=== PATIENT | male | born 1950 | race Caucasian/White ===

== ENCOUNTER 2021-05-25 09:39 | Inpatient (IN) ==
[2021-05-25] MEDS ORDERED: Isovue-370 500 ML BOTTLE IVP ONE (10:01)
[2021-05-25] MEDS ORDERED: *HR* OxyCODONE/APAP 5/325 TABLET PO ONE (10:02)
[2021-05-25 10:30] LABS: Bacteria,Urine Few per hpf (None-Few); Bilirubin,Urine Negative (Negative); Blood,Urine Large (Negative); Clarity,Urine Ex.Turbid (Clear); Color,Urine Yellow (Yellow); Glucose,Urine (UA) Normal (Normal); Ketones,Urine Negative (Negative); Leukocyte Esterase,Urine Large (Negative); Mucus,Urine Few per lpf (None-Few); Nitrite,Urine Negative (Negative); Protein,Urine 70 mg/dL (Neg-Trace); RBC,Urine 30-50 per hpf (0-3); Specific Gravity,Urine 1.018 (1.010-1.025); Transitional Epi Cells,Urine Few per hpf (None-Few); Urobilinogen,Urine Normal (Normal); WBC,Urine TNTC per hpf (0-3)
[2021-05-25 10:33] LABS: Basophils % 0.2 %; Eosinophils % 0.1 %; Hematocrit 41.2 % (37.5-50.1); Hemoglobin 13.7 g/dL (12.9-16.9); Immature Granulocytes % 1.2 % (0-4); Lymphocytes # 0.8 K/mcL (0.6-4.6); Lymphocytes % 4.2 %; Mean Corpuscular HGB Conc 33.3 g/dL (31.6-35.5); Mean Corpuscular Hemoglobin 31.5 pg (28.0-33.3); Mean Corpuscular Volume 94.7 fL (83.0-100.0); Mean Platelet Volume 9.9 fL (9.4-12.4); Monocytes # 1.4 K/mcL (0.0-1.3); Monocytes % 7.4 %; Neutrophils # 16.5 K/mcL (1.6-8.9); Platelet Count 225 K/mcL (140-400); Red Blood Count 4.35 M/mcL (4.19-5.50); Red Cell Distribution Width 13.6 % (11.5-14.5); Segmented Neutrophils % 86.9 %
[2021-05-25 10:52] LABS: Calcium 9.2 mg/dL (8.6-10.3)
[2021-05-25] MEDS ORDERED: Ampicillin/Sulbactam 3,000 MG in 0.9 % Sodium Chloride Mini Bag 100 ML IVPB ONE (12:39)
[2021-05-25] MEDS ORDERED: 0.9 % Sodium Chloride 1,000 ML IVC ONE (12:39)
[2021-05-25] MEDS ORDERED: Acetaminophen 325 MG TABLET PO PRN (13:39)
[2021-05-25] MEDS ORDERED: Ondansetron 4 MG/2 ML VIAL IVP PRN (13:39)
[2021-05-25] MEDS ORDERED: Naloxone 0.4 MG/ML INJ IVP PRN (13:39)
[2021-05-25] MEDS: Nicotine 21 MG PATCH.TD24 TD SCH (15:40)
[2021-05-25] MEDS: *HR* OxyCODONE Immed Rel 5 MG TABLET PO PRN (15:41)
[2021-05-25] MEDS: 0.9 % Sodium Chloride 1,000 ML IVC SCH (15:41)
[2021-05-26] MEDS: 0.9 % Sodium Chloride 1,000 ML IVC SCH ×2 (01:44→15:27)
[2021-05-26 05:42] LABS: Hematocrit 35.9 % (37.5-50.1); Mean Corpuscular Volume 96.8 fL (83.0-100.0); Mean Platelet Volume 10.3 fL (9.4-12.4); Platelet Count 183 K/mcL (140-400); Red Blood Count 3.71 M/mcL (4.19-5.50); Red Cell Distribution Width 13.8 % (11.5-14.5); White Blood Count 21.8 K/mcL (4.3-11.1)
[2021-05-26 05:48] LABS: Hemoglobin 11.5 g/dL (12.9-16.9)
[2021-05-26 06:06] LABS: Calcium 7.9 mg/dL (8.6-10.3); Potassium 3.6 mEq/L (3.5-5.1)
[2021-05-26 06:45] LABS: Lymphocytes # 1.7 K/mcL (0.6-4.6); Monocytes # 0.4 K/mcL (0.0-1.3); Neutrophils # 19.6 K/mcL (1.6-8.9); Platelet Estimate Normal (Normal)
[2021-05-26] MEDS: Nicotine 21 MG PATCH.TD24 TD SCH (08:30)
[2021-05-26] MEDS: Ertapenem 1,000 MG in 0.9 % Sodium Chloride Mini Bag 100 ML IVPB SCH (08:31)
[2021-05-26] MEDS ORDERED: Ertapenem 1,000 MG in 0.9 % Sodium Chloride Mini Bag 100 ML IVPB ONE (12:49)
[2021-05-26] MEDS: *HR* OxyCODONE Immed Rel 5 MG TABLET PO PRN (19:17)
[2021-05-27] MEDS: *HR* OxyCODONE Immed Rel 5 MG TABLET PO PRN ×3 (01:28→21:03)
[2021-05-27 04:51] LABS: Basophils % 0.1 %; Eosinophils % 0.2 %; Hematocrit 34.1 % (37.5-50.1); Hemoglobin 10.9 g/dL (12.9-16.9); Immature Granulocytes % 0.9 % (0-4); Lymphocytes # 0.8 K/mcL (0.6-4.6); Lymphocytes % 4.2 %; Mean Corpuscular Hemoglobin 30.8 pg (28.0-33.3); Mean Corpuscular Volume 96.3 fL (83.0-100.0); Mean Platelet Volume 10.1 fL (9.4-12.4); Monocytes # 0.9 K/mcL (0.0-1.3); Neutrophils # 16.6 K/mcL (1.6-8.9); Platelet Count 182 K/mcL (140-400); Red Blood Count 3.54 M/mcL (4.19-5.50); Red Cell Distribution Width 13.7 % (11.5-14.5); Segmented Neutrophils % 89.6 %; White Blood Count 18.5 K/mcL (4.3-11.1)
[2021-05-27 05:08] LABS: BUN/Creatinine Ratio 21 (6-26); Blood Urea Nitrogen 26 mg/dL (8-23); Calcium 7.8 mg/dL (8.6-10.3); Carbon Dioxide 22 mEq/L (23-29); Chloride 102 mEq/L (98-107); Glucose 104 mg/dL (70-105); Magnesium 1.8 mg/dL (1.6-2.6); Osmolality,Calculated 283 (280-300); Potassium 3.3 mEq/L (3.5-5.1); Sodium 134 mEq/L (136-145); eGFR For African Americans > 60 (> 60); eGFR For Non-African Americans 57 (> 60)
[2021-05-27] MEDS: Ertapenem 1,000 MG in 0.9 % Sodium Chloride Mini Bag 100 ML IVPB SCH (08:07)
[2021-05-27] MEDS: Nicotine 21 MG PATCH.TD24 TD SCH (08:07)
[2021-05-27] MEDS: 0.9 % Sodium Chloride 1,000 ML IVC SCH (09:49)
[2021-05-28] MEDS: 0.9 % Sodium Chloride 1,000 ML IVC SCH (05:18)
[2021-05-28] MEDS: *HR* OxyCODONE Immed Rel 5 MG TABLET PO PRN (05:19)
[2021-05-28 07:44] LABS: Basophils % 0.3 %; Eosinophils # 0.1 K/mcL (0.0-0.6); Eosinophils % 1.4 %; Hematocrit 34.6 % (37.5-50.1); Hemoglobin 11.1 g/dL (12.9-16.9); Immature Granulocytes % 1.2 % (0-4); Lymphocytes % 9.3 %; Mean Corpuscular HGB Conc 32.1 g/dL (31.6-35.5); Mean Corpuscular Hemoglobin 30.3 pg (28.0-33.3); Mean Corpuscular Volume 94.5 fL (83.0-100.0); Mean Platelet Volume 10.3 fL (9.4-12.4); Monocytes # 0.7 K/mcL (0.0-1.3); Monocytes % 8.1 %; Platelet Count 188 K/mcL (140-400); Red Blood Count 3.66 M/mcL (4.19-5.50); Red Cell Distribution Width 13.6 % (11.5-14.5); Segmented Neutrophils % 79.7 %
[2021-05-28 07:59] LABS: Lymphocytes # 0.9 K/mcL (0.6-4.6); Neutrophils # 7.3 K/mcL (1.6-8.9); White Blood Count 9.1 K/mcL (4.3-11.1)
[2021-05-28 08:11] LABS: BUN/Creatinine Ratio 19 (6-26); Blood Urea Nitrogen 23 mg/dL (8-23); Carbon Dioxide 22 mEq/L (23-29); Chloride 105 mEq/L (98-107); Glucose 121 mg/dL (70-105); Magnesium 1.8 mg/dL (1.6-2.6); Osmolality,Calculated 285 (280-300); Potassium 3.9 mEq/L (3.5-5.1); Sodium 135 mEq/L (136-145); eGFR For African Americans > 60 (> 60); eGFR For Non-African Americans > 60 (> 60)
[2021-05-28] MEDS: Nicotine 21 MG PATCH.TD24 TD SCH (08:23)
[2021-05-28] MEDS ORDERED: levoFLOXacin 750 MG/150 ML 750 MG/150 ML BAG IVPB SCH (09:00)
[2021-05-28 11:13] VITALS: BP 108/72; PULSE 88; TEMP 98; O2SAT 98
== END 2021-05-28 12:00 | disposition home or self-care (01) | DRG 862 ==
LOC: EMEROOARM 09:39 → 3ANU 09:39 → SUATTDRO 13:09 → 3ANU 14:33 → SUATTDRO 05-26 18:54
PROVIDERS: ADMIT Internal Medicine; ATTEND Hospitalist

== ENCOUNTER 2021-06-17 15:36 | Inpatient (IN) ==
[2021-06-17] MEDS ORDERED: 0.9 % Sodium Chloride 1,000 ML ONE (16:23)
[2021-06-17] MEDS ORDERED: *HR* Heparin 5,000 UNIT/ML VIAL IVP PRN ×4 (16:34→21:38)
[2021-06-17] MEDS ORDERED: *HR* Heparin 5,000 UNIT/ML VIAL IVP ONE ×2 (16:34→21:38)
[2021-06-17] MEDS ORDERED: Heparin 25,000UNIT/250ML 1/2NS 25,000 UNIT/250 ML IV.SOLN IVC SCH ×2 (16:45→21:45)
[2021-06-17 16:56] LABS: Basophils % 0.3 %; Eosinophils # 0.2 K/mcL (0.0-0.6); Eosinophils % 1.6 %; Hematocrit 41.4 % (37.5-50.1); Hemoglobin 13.3 g/dL (12.9-16.9); Immature Granulocytes % 0.4 % (0-4); Lymphocytes % 8.8 %; Mean Corpuscular HGB Conc 32.1 g/dL (31.6-35.5); Mean Corpuscular Hemoglobin 30.5 pg (28.0-33.3); Mean Platelet Volume 10.4 fL (9.4-12.4); Monocytes # 0.9 K/mcL (0.0-1.3); Monocytes % 7.9 %; Neutrophils # 9.4 K/mcL (1.6-8.9); Platelet Count 150 K/mcL (140-400); Red Blood Count 4.36 M/mcL (4.19-5.50); Red Cell Distribution Width 14.4 % (11.5-14.5); White Blood Count 11.6 K/mcL (4.3-11.1)
[2021-06-17 17:00] LABS: INR 1.1; Prothrombin Time 12.4 Seconds (9.4-12.1)
[2021-06-17] MEDS ORDERED: Aspirin 81 MG TAB.CHEW PO ONE (17:02)
[2021-06-17 17:03] LABS: Activated Partial Thrombo Time 30.5 Seconds (26.0-36.0); Heparin anti-factor XA UFH < 0.04 IU/mL (0.30-0.70)
[2021-06-17] MEDS ORDERED: 0.9 % Sodium Chloride 1,000 ML IVC ONE (17:16)
[2021-06-17 17:26] LABS: Alanine Aminotransferase 15 Units/L (7-52); Albumin 3.9 g/dL (3.5-5.7); Albumin/Globulin Ratio 1.3 (1.1-2.2); Alkaline Phosphatase 41 Units/L (34-104); Aspartate Amino Transferase 31 Units/L (13-39); BUN/Creatinine Ratio 17 (6-26); Bilirubin,Direct 0.1 mg/dL (0.0-0.2); Bilirubin,Indirect 0.6 mg/dL (0.0-1.0); Bilirubin,Total 0.7 mg/dL (0.3-1.0); Blood Urea Nitrogen 22 mg/dL (8-23); Calcium 9.2 mg/dL (8.6-10.3); Carbon Dioxide 27 mEq/L (23-29); Chloride 102 mEq/L (98-107); Globulin 3.1 g/dL (2.4-3.5); Glucose 121 mg/dL (70-105); Osmolality,Calculated 287 (280-300); Potassium 3.9 mEq/L (3.5-5.1); Sodium 136 mEq/L (136-145); Troponin I 1.72 ng/mL (< 0.04); eGFR For African Americans > 60 (> 60); eGFR For Non-African Americans 55 (> 60)
[2021-06-17] MEDS ORDERED: Naloxone 0.4 MG/ML INJ IVP PRN (18:14)
[2021-06-17] MEDS ORDERED: Ondansetron 4 MG/2 ML VIAL IVP PRN (18:14)
[2021-06-17 18:51] LABS: D-Dimer 3949 ng/mLFEU (0-500)
[2021-06-17] MEDS ORDERED: Isovue-370 500 ML BOTTLE IVP ONE (19:52)
[2021-06-17] MEDS ORDERED: Perflutren Lipid Microsphere 1.3 ML in 0.9 % Sodium Chloride 8.7 ML IVP PRN (21:42)
[2021-06-18] MEDS ORDERED: *HR* Heparin 5,000 UNIT/ML VIAL IVP PRN ×2 (01:10)
[2021-06-18] MEDS ORDERED: Heparin 25,000UNIT/250ML 1/2NS 25,000 UNIT/250 ML IV.SOLN IVC SCH (01:15)
[2021-06-18 02:10] LABS: Chol/HDL Ratio 3.9 (0-4.9); Uric Acid 5.1 mg/dL (2.3-7.6)
[2021-06-18 02:11] LABS: BUN/Creatinine Ratio 15 (6-26); Blood Urea Nitrogen 19 mg/dL (8-23); Calcium 8.5 mg/dL (8.6-10.3); Carbon Dioxide 26 mEq/L (23-29); Chloride 105 mEq/L (98-107); Glucose 133 mg/dL (70-105); Magnesium 1.9 mg/dL (1.6-2.6); Osmolality,Calculated 288 (280-300); Phosphorous 2.4 mg/dL (2.7-4.5); Potassium 3.8 mEq/L (3.5-5.1); Sodium 137 mEq/L (136-145); eGFR For African Americans > 60 (> 60); eGFR For Non-African Americans 58 (> 60)
[2021-06-18 02:14] LABS: Hemoglobin 12.1 g/dL (12.9-16.9); Immature Granulocytes % 0.3 % (0-4); Mean Platelet Volume 10.8 fL (9.4-12.4); Red Cell Distribution Width 14.6 % (11.5-14.5)
[2021-06-18 02:16] LABS: Basophils % 0.3 %; Eosinophils # 0.6 K/mcL (0.0-0.6); Eosinophils % 6.7 %; Hematocrit 36.7 % (37.5-50.1); Immature Platelets 2.6 % (1.1-6.1); Lymphocytes # 1.2 K/mcL (0.6-4.6); Lymphocytes % 12.7 %; Mean Corpuscular Hemoglobin 31.3 pg (28.0-33.3); Mean Corpuscular Volume 94.8 fL (83.0-100.0); Monocytes # 0.7 K/mcL (0.0-1.3); Monocytes % 7.9 %; Neutrophils # 6.6 K/mcL (1.6-8.9); Platelet Count 139 K/mcL (140-400); Red Blood Count 3.87 M/mcL (4.19-5.50); Segmented Neutrophils % 72.1 %; White Blood Count 9.2 K/mcL (4.3-11.1)
[2021-06-18 02:19] LABS: Troponin I 1.58 ng/mL (< 0.04)
[2021-06-18 02:24] LABS: Thyroid Stimulating Hormone 0.761 mcIU/mL (0.340-5.600)
[2021-06-18] MEDS: Nitroglycerin 0.4 MG TAB.SUBL SL PRN ×2 (02:49→08:26)
[2021-06-18] MEDS ORDERED: Aspirin Enteric Coated 81 MG Tablet PO SCH (09:00)
[2021-06-18] MEDS ORDERED: *HR* Heparin 10,000 UNIT/10 ML VIAL ONE (10:49)
[2021-06-18] MEDS ORDERED: Nitroglycerin 1,000 MCG/5 ML VIAL IV ONE (10:49)
[2021-06-18] MEDS ORDERED: 0.9 % Sodium Chloride 1,000 ML ONE ×2 (10:49→10:58)
[2021-06-18] MEDS ORDERED: Heparin 1,000 UNITS/500 mL 500 ML ONE (10:49)
[2021-06-18] MEDS ORDERED: ISOVUE-370 200 ML INFUS..BTL ONE ×2 (10:49→11:55)
[2021-06-18] MEDS ORDERED: *HR* FentaNYL (PF) 100 MCG/2 ML VIAL ONE (11:19)
[2021-06-18] MEDS ORDERED: *HR* Midazolam HCl 2 MG/2 ML VIAL ONE (11:19)
[2021-06-18] MEDS ORDERED: Tirofiban 12.5 MG/250ML 12.5 MG/250 ML BAG ONE (11:47)
[2021-06-18] MEDS ORDERED: *HR* Ticagrelor 90 MG TABLET ONE (12:04)
[2021-06-18] MEDS ORDERED: *HR* Atropine Sulfate 1 MG/10 ML SYRINGE ONE (12:14)
[2021-06-18] MEDS ORDERED: Tirofiban 12.5 MG/250ML 12.5 MG/250 ML BAG IVC SCH (12:45)
[2021-06-18] MEDS ORDERED: Isosorbide MONOnitrate (24 HR) 30 MG TAB.ER.24H PO SCH (13:00)
[2021-06-18] MEDS ORDERED: lisinopriL 5 MG TABLET PO SCH (15:30)
[2021-06-18] MEDS: *HR* Ticagrelor 90 MG TABLET PO SCH (20:00)
[2021-06-18] MEDS ORDERED: Melatonin 3 MG TABLET PO PRN (22:46)
[2021-06-19 02:58] LABS: BUN/Creatinine Ratio 15 (6-26); Blood Urea Nitrogen 18 mg/dL (8-23); Calcium 8.4 mg/dL (8.6-10.3); Carbon Dioxide 26 mEq/L (23-29); Chloride 106 mEq/L (98-107); Glucose 209 mg/dL (70-105); Osmolality,Calculated 292 (280-300); Phosphorous 2.1 mg/dL (2.7-4.5); Potassium 3.8 mEq/L (3.5-5.1); Sodium 137 mEq/L (136-145); eGFR For African Americans > 60 (> 60); eGFR For Non-African Americans 59 (> 60)
[2021-06-19 06:41] VITALS: BP 99/63; PULSE 86; TEMP 97.8; O2SAT 97
[2021-06-19] MEDS: *HR* Ticagrelor 90 MG TABLET PO SCH (08:23)
[2021-06-19] MEDS ORDERED: Aspirin 81 MG TAB.CHEW PO SCH (09:00)
== END 2021-06-19 10:48 | disposition home or self-care (01) | DRG 246 ==
LOC: 2ANU 15:36 → EMEROOARM 15:36 → SUATTDRO 20:07 → 2ANU 21:10
PROVIDERS: ADMIT Internal Medicine; ATTEND Internal Medicine

== ENCOUNTER 2021-09-11 09:51 | Observation (INO) ==
[2021-09-11 10:47] LABS: Basophils % 0.4 %
[2021-09-11 10:51] LABS: Eosinophils # 0.2 K/mcL (0.0-0.6); Eosinophils % 2.9 %; Hematocrit 45.8 % (37.5-50.1); Immature Granulocytes % 0.1 % (0-4); Immature Platelets 3.4 % (1.1-6.1); Lymphocytes # 1.3 K/mcL (0.6-4.6); Lymphocytes % 18.8 %; Mean Corpuscular HGB Conc 32.8 g/dL (31.6-35.5); Mean Corpuscular Hemoglobin 30.5 pg (28.0-33.3); Mean Corpuscular Volume 93.1 fL (83.0-100.0); Mean Platelet Volume 10.2 fL (9.4-12.4); Monocytes # 0.5 K/mcL (0.0-1.3); Monocytes % 7.3 %; Neutrophils # 4.9 K/mcL (1.6-8.9); Platelet Count 161 K/mcL (140-400); Red Blood Count 4.92 M/mcL (4.19-5.50); Red Cell Distribution Width 13.9 % (11.5-14.5); Segmented Neutrophils % 70.5 %
[2021-09-11 11:08] LABS: BUN/Creatinine Ratio 17 (6-26); Blood Urea Nitrogen 20 mg/dL (8-23); Calcium 9.3 mg/dL (8.6-10.3); Carbon Dioxide 29 mEq/L (23-29); Chloride 105 mEq/L (98-107); Glucose 115 mg/dL (70-105); Osmolality,Calculated 292 (280-300); Potassium 4.4 mEq/L (3.5-5.1); Sodium 139 mEq/L (136-145); Troponin I < 0.03 ng/mL (< 0.04); eGFR For African Americans > 60 (> 60); eGFR For Non-African Americans > 60 (> 60)
[2021-09-11 11:20] LABS: Platelet Estimate Normal (Normal)
[2021-09-11] MEDS ORDERED: Melatonin 3 MG TABLET PO PRN (14:22)
[2021-09-11] MEDS ORDERED: Ondansetron 4 MG/2 ML VIAL IVP PRN (14:22)
[2021-09-11] MEDS ORDERED: Acetaminophen 325 MG TABLET PO PRN (14:22)
[2021-09-11] MEDS ORDERED: Nicotine 2 MG GUM BC PRN (14:23)
[2021-09-11] MEDS ORDERED: Perflutren Lipid Microsphere 1.3 ML in 0.9 % Sodium Chloride 8.7 ML IVP PRN (14:28)
[2021-09-11] MEDS: traZODone 50 MG TABLET PO SCH (19:52)
[2021-09-12 03:42] LABS: BUN/Creatinine Ratio 20 (6-26); Blood Urea Nitrogen 22 mg/dL (8-23); Calcium 8.8 mg/dL (8.6-10.3); Carbon Dioxide 24 mEq/L (23-29); Chloride 106 mEq/L (98-107); Glucose 88 mg/dL (70-105); Magnesium 1.8 mg/dL (1.6-2.6); Osmolality,Calculated 291 (280-300); Phosphorous 2.9 mg/dL (2.7-4.5); Potassium 3.6 mEq/L (3.5-5.1); Sodium 139 mEq/L (136-145); Troponin I < 0.03 ng/mL (< 0.04); eGFR For African Americans > 60 (> 60); eGFR For Non-African Americans > 60 (> 60)
[2021-09-12] MEDS ORDERED: Regadenoson 0.4 MG/5 ML SYRINGE IVP ONE (06:33)
[2021-09-12] MEDS ORDERED: Perflutren Lipid Microsphere 1.3 ML in 0.9 % Sodium Chloride 8.7 ML IVP PRN (08:00)
[2021-09-12] MEDS: Aspirin 81 MG TAB.CHEW PO SCH (09:57)
[2021-09-12] MEDS: Metoprolol XL (24 HR) Succ 25 MG TAB.ER.24H PO SCH (09:58)
[2021-09-12] MEDS ORDERED: *HR* FentaNYL (PF) 100 MCG/2 ML VIAL ONE (11:34)
[2021-09-12] MEDS ORDERED: *HR* Midazolam HCl 2 MG/2 ML VIAL ONE ×2 (11:34→12:47)
[2021-09-12] MEDS ORDERED: *HR* Heparin 10,000 UNIT/10 ML VIAL ONE ×2 (11:35→12:07)
[2021-09-12] MEDS ORDERED: 0.9 % Sodium Chloride 1,000 ML ONE (11:35)
[2021-09-12] MEDS ORDERED: ISOVUE-370 200 ML INFUS..BTL ONE (11:35)
[2021-09-12] MEDS ORDERED: Nitroglycerin 1,000 MCG/5 ML VIAL IV ONE (11:35)
[2021-09-12] MEDS ORDERED: Heparin 1,000 UNITS/500 mL 500 ML ONE (11:35)
[2021-09-12] MEDS: traZODone 50 MG TABLET PO SCH (20:26)
[2021-09-13 07:17] VITALS: BP 133/70; PULSE 83; TEMP 97.5; O2SAT 94
[2021-09-13] MEDS: Aspirin 81 MG TAB.CHEW PO SCH (07:36)
[2021-09-13] MEDS: Metoprolol XL (24 HR) Succ 25 MG TAB.ER.24H PO SCH (07:36)
== END 2021-09-13 08:48 | disposition home or self-care (01) ==
LOC: EMEROOARM 09:51 → 3BNU 09:51 → SUATTDRO 12:49 → 3BNU 13:47
PROVIDERS: ADMIT Internal Medicine; ATTEND Registered Nurse